=== PATIENT | male | born 1995 | race Caucasian/White ===

== ENCOUNTER 2021-11-05 21:40 | Emergency (ER) | payer OTHER ==
[~2021-11-05] VITALS: Ht 172.7 cm; Wt 68.0 kg
[~2021-11-05 21:40] MED LIST: AMOXICILLI125 MG/51; AMOXICILLIN; AUGMENTIN 500-1 EACH PO; CIPROFLOXACIN500 M1 PO; FLEXERIL PO; FLOMAX0.4 MG PO; HYDROCODON-ACE1 EAC7 PO; NOHOMEMEDICATIONS; NORCO 5-325 TA1 EACH PO; PERCOCET 5-3251 EACH PO; PERCOCET PO; TRIPLE ANTIBIOT30 G2 TP; ZOFRAN ODT4 MG DISSOLVE
[2021-11-05] MEDS ORDERED: NOHOMEMEDICATIONS (22:00)
[2021-11-05] MEDS ORDERED: NORCO5 PO (23:07)
[2021-11-05 23:17] VITALS: BP 116/76
== END 2021-11-05 23:19 | disposition home or self-care (01) ==
LOC: M.ERS 21:40
DX: S90.211A Contusion of right great toe with damage to nail, initial encounter (principal); Z90.89 Acquired absence of other organs; X58.XXXA Exposure to other specified factors, initial encounter; Y93.89 Activity, other specified; Y92.89 Other specified places as the place of occurrence of the external cause; Y99.8 Other external cause status